=== PATIENT | female | born 1980 | race Caucasian/White ===

== ENCOUNTER 2018-05-06 09:56 | Day surgery (SDC) | payer BC ==
[~2018-05-06] VITALS: Ht 167.6 cm; Wt 77.3 kg
[~2018-05-06 09:56] MED LIST: ANTIVERT25 MG PO; ENDOCET 5-3251 EACH PO; MOTRIN800 MG PO; PHENERGAN25 MG PO
[2018-05-06 10:56] LABS: HEMATOCRIT 40.4 % (36.0-46.0); HEMOGLOBIN 13.5 G/DL (11.9-15.5); MCH 27.7 PG (29.0-34.0); MCHC 33.4 G/DL (30.0-36.0); MCV 82.8 FL (83-99); PLATELET COUNT 189 K/uL (156-360); RBC DIS.WIDTH-CV 12.8 % (11.8-14.6); RBC DIS.WIDTH-SD 38.5 % (39-53); RED BLOOD COUNT 4.88 M/uL (3.80-5.20); WHITE BLOOD COUNT 14.6 K/uL (4.1-10.2)
[2018-05-06 11:05] LABS: ALBUMIN 4.4 g/dL (3.2-4.8)
[2018-05-06 11:06] LABS: CHLORIDE 107 mEq/L (99-109); POTASSIUM 4.2 mEq/L (3.7-5.4); SODIUM 140 mEq/L (136-147)
[2018-05-06 11:08] LABS: GLUCOSE 132 mg/dL (70-99); TOTAL PROTEIN 7.6 g/dL (6.4-8.3)
[2018-05-06 11:10] LABS: TOTAL BILIRUBIN 0.4 mg/dL (0.0-1.0)
[2018-05-06 11:11] LABS: ALKALINE PHOSPHATASE 78 IU/L (3-129)
[2018-05-06 11:12] LABS: CREATININE 0.8 mg/dL (0.6-1.3); GFR ESTIMATE (CALCULATED) > 59 mL/min/
[2018-05-06 11:13] LABS: AST (GOT) 33 IU/L (2-34); UREA NITROGEN (BUN) 11 mg/dL (9-23)
[2018-05-06 11:15] LABS: ALT (GPT) 61 IU/L (3-49)
[2018-05-06 11:20] LABS: QUANTITATIVE HCG < 4.0 MIU/ML
[2018-05-06 11:35] LABS: APPEARANCE CLEAR ((CLEAR)); BILIRUBIN NEGATIVE; BLOOD NEGATIVE; COLOR YELLOW ((YELLOW)); GLUCOSE (STRIP) NEGATIVE; KETONES 80; LEUKOCYTES NEGATIVE; NITRITE NEGATIVE; PROTEIN (STRIP) 30; SPECIFIC GRAVITY 1.027 (1.000-1.030); UCUL ADDED? NO; UROBILINOGEN 0.2 MG/DL (0.2-1.0)
[2018-05-06 11:53] LABS: LIPASE 14 U/L (1.0-51.0)
[2018-05-06] MEDS ORDERED: OXYCODONE HCL5 MG PO (16:45)
[2018-05-06 19:16] VITALS: BP 121/60
[2018-05-06 23:52] VITALS: BP 104/55
[2018-05-07 03:28] VITALS: BP 104/56
[2018-05-07 07:13] LABS: MCH 27.4 PG (29.0-34.0); MCV 82.9 FL (83-99); PLATELET COUNT 163 K/uL (156-360); RBC DIS.WIDTH-CV 12.9 % (11.8-14.6); RBC DIS.WIDTH-SD 39.4 % (39-53); RED BLOOD COUNT 3.98 M/uL (3.80-5.20); WHITE BLOOD COUNT 9.9 K/uL (4.1-10.2)
[2018-05-07 07:17] LABS: HEMOGLOBIN 10.9 G/DL (11.9-15.5)
[2018-05-07 07:37] LABS: CHLORIDE 107 MEQ/L (99-109); CREATININE 0.6 MG/DL (0.6-1.3); GFR ESTIMATE (CALCULATED) > 59 mL/min/; GLUCOSE 108 mg/dL (70-99); POTASSIUM 4.1 MEQ/L (3.7-5.4); SODIUM 139 MEQ/L (136-147); UREA NITROGEN (BUN) 7 mg/dL (9-23)
[2018-05-07 08:26] VITALS: BP 118/80
== END 2018-05-07 11:26 | disposition home or self-care (01) ==
LOC: EME 09:56 → SDC 14:45 → EME 14:45 → 2SOUTH 16:17 → ENRESERV 16:57 → 2EAST 17:57
PROVIDERS: Surgery
PROC: 0DTJ4ZZ Resection of Appendix, Percutaneous Endoscopic Approach (ICD-10-PCS; principal; 2018-05-06)
DX: K35.3 Acute appendicitis with localized peritonitis (principal); E86.0 Dehydration; Z91.013 Allergy to seafood
CPT/HCPCS: 74177; 80048; 80053; 81003; 83690; 84702; 85027; 88304; 99281; 99285; G0378; J0330; J1100; J1170; J1200; J1885; J2250; J2405; J2765; J3010; J7030; S0030; S0074